=== PATIENT | female | born 1975 | race Caucasian/White ===

== ENCOUNTER 2023-03-29 19:29 | Emergency (ER) | payer BC ==
[2023-03-29] MEDS: Sodium Chloride 0.9% 1,000 ML IV ONE (19:50)
[2023-03-29] MEDS: Ondansetron 4 MG/2 ML SDV IVPUSH ONE (19:54)
[2023-03-29] MEDS: Morphine 4 MG/ML VIAL IVPUSH ONE (19:55)
[2023-03-29 19:56] LABS: BASOPHILS ABSOLUTE AUTO 0.06 10^3/uL (0.00-0.50); BASOPHILS PERCENT AUTO 0.4 % (0-1); EOSINOPHILS ABSOLUTE AUTO 0.64 10^3/uL (0.00-1.50); EOSINOPHILS PERCENT AUTO 4.2 % (0-6); HEMATOCRIT 37.5 % (37.0-47.0); HEMOGLOBIN 12.1 g/dL (12.0-16.0); IMMATURE GRAN ABSOLUTE AUTO 0.02 10^3/uL (0.00-0.49); IMMATURE GRAN PERCENT AUTO 0.1 % (0.0-4.9); LYMPHOCYTES PERCENT AUTO 10.5 % (24-44); MEAN CORPUSCULAR HEMOGLOBIN 29.2 pg (27.0-32.0); MEAN CORPUSCULAR HGB CONC 32.3 g/dL (32.0-36.0); MEAN CORPUSCULAR VOLUME 90.6 fL (83.0-97.0); MONOCYTES ABSOLUTE AUTO 0.69 10^3/uL (0.00-1.50); MONOCYTES PERCENT AUTO 4.5 % (0-10); NEUTROPHILS ABSOLUTE AUTO 12.24 x10^3/uL (1.80-8.00); NEUTROPHILS PERCENT AUTO 80.3 % (41-71); PLATELET COUNT,PLT 317 10^3/uL (150-400); RED BLOOD CELL COUNT 4.14 x10^6/uL (4.00-5.50); WHITE BLOOD CELL COUNT,WBC 15.3 10^3/uL (4.0-11.0)
[2023-03-29 20:08] LABS: ALBUMIN 3.7 g/dL (3.4-5.0); BILIRUBIN TOTAL 0.8 mg/dL (0.0-1.0); CREATININE 0.7 mg/dL (0.6-1.0); EST CRCL DRUG DOSING (CG) 97.65 mL/min; MAGNESIUM 1.6 mg/dL (1.8-2.4)
[2023-03-29] MEDS: Iopamidol 755 Mg/ML 100 ML Bottle IVPUSH ONE (20:20)
[2023-03-29] MEDS: HYDROmorphone 1 MG/ML Syringe IVPUSH ONE ×2 (20:37→21:58)
[2023-03-29 20:50] LABS: APPEARANCE,URINE CLOUDY (CLEAR); BILIRUBIN,URINE NEGATIVE (NEGATIVE); COLOR,URINE DARK YELLOW (YELLOW); GLUCOSE,URINE NEGATIVE (NEGATIVE); LEUKOCYTE ESTERASE,URINE NEGATIVE (NEGATIVE); NITRITE,URINE NEGATIVE (NEGATIVE); OCCULT BLOOD,URINE LARGE (NEGATIVE); PROTEIN,URINE NEGATIVE (NEGATIVE); UROBILINOGEN,URINE 0.2 EU/dL (0.2-1.0)
[2023-03-29 20:51] LABS: BACTERIA,URINE NOT SEEN /HPF (NOT SEEN); KETONES,URINE TRACE mg/dL (NEGATIVE); RBC,URINE >100 /HPF (0-5); SQUAMOUS EPITHELIAL CELLS,UR FEW /HPF (NOT SEEN); WBC,URINE NOT SEEN /HPF (0-5)
[2023-03-29] MEDS: Piperacillin/Tazobactam 4.5 GM in Sodium Chloride 0.9% 100 ML IV ONE (21:38)
[2023-03-29] MEDS: Lactated Ringers 1,000 ML IV SCH (21:48)
== END 2023-03-29 22:17 ==
LOC: CC.ED 19:29
DX: K56.609 Unspecified intestinal obstruction, unspecified as to partial versus complete obstruction (principal)
CPT/HCPCS: 36415; 74177; 80053; 81001; 83605; 83690; 83735; 85025; 87040; 96361; 96365; 96375; 96376; 99284; 99285-25; J1170; J2270; J2405; J2543; J3490; J7030; J7120; Q9967